=== PATIENT | male | born 1970 | race Caucasian/White ===

== ENCOUNTER 2017-01-01 09:13 | Emergency (ER) | payer BC ==
[~2017-01-01] VITALS: Wt 80.0 kg
[~2017-01-01 09:13] MED LIST: LISI10TA2 PO; LISI20TA11 PO
[2017-01-01] MEDS ORDERED: OXYMETAZOLINE 0.05% 15 ML NAS SPRAY NASAL STA (10:28)
[2017-01-01] MEDS ORDERED: PETR18JE2 TP (10:45)
--- NOTE | 2017-01-01 10:53 | ERD ---
ER Documentation Chief Complaint Date/Time DATE: 01/01/17 TIME: 10:49 Chief Complaint NOSE BLEED INTERMITTENT FOR 10 DAYS. NO TRAUMA OR HEADACHE HPI This is a 46-year-old male with a history of hypertension presenting to the emergency department complaining of a nosebleed that comes and goes for the past 10 days. Patient states that the nosebleed will happen in his right nare and last for about 30 minutes. Patient denies any active bleeding at this moment. Patient denies headache, head or facial trauma. Patient denies any dizziness. Patient has not tried any medications. He denies picking his nose. He denies any drug use. ROS All systems reviewed and are negative except as per history of present illness. Medications Home Meds Active Scripts Petrolatum,White (VASELINE) 18 Ml Jelly.ml., 1 APPLIC TP BID, #1 Prov:EDMUNDO TRINIDAD PA-C 01/01/17 Lisinopril* (Lisinopril*) 20 Mg Tablet, 20 MG PO DAILY, #20 TAB Prov:BILL QUINTEROS 05/15/15 Reported Medications Lisinopril* (Lisinopril*) 10 Mg Tablet, 10 MG PO DAILY, TAB 11/12/14 Allergies Allergies: Coded Allergies: No Known Allergy (Unverified , 05/15/15) PMhx/Soc Medical and Surgical Hx: pt denies Surgical Hx History of Surgery: No Anesthesia Reaction: No Hx Neurological Disorder: No Hx Respiratory Disorders: No Hx Cardiac Disorders: No Hx Psychiatric Problems: No Hx Miscellaneous Medical Probl: Yes (HTN, GOUT) Hx Alcohol Use: No Hx Substance Use: No Hx Tobacco Use: Yes Smoking Status: Current every day smoker Physical Exam Vitals Vital Signs Date Time Temp Pulse Resp B/P Pulse Ox O2 Delivery O2 Flow Rate FiO2 01/01/17 09:15 98.8 60 20 136/84 97 Physical Exam GENERAL: well-developed/well-nourished, in no apparent distress, non-toxic appearing HENT: NC/AT, bilateral tympanic membrane is normal with good cone of light, left nares patent and the right nare has evidence of dried blood,, oropharynx clear without exudates EYES: Conjunctiva normal, PERRLA, EOMI, no nystagmus noted NECK: Supple, no lymphadenopathy PULM: CTA bilaterally, no rales, rhonchi, or wheezing heard CV: Normal S1S2, RRR, good capillary refill GI: Soft, non-distended, normal bowel sounds, non-tender BACK: No midline tenderness, no masses, No CVAT EXT: No clubbing, cyanosis, or edema NEURO: Alert and orientated to person, place, and time. CN II-IIX intact. Gait and coordination were normal. Hand tube operator strength were equal and within normal limits SKIN: Intact, normal turgor PSYCH: Normal mood and mentation, patient denied SI Results 24 hrs Current Medications Medications (Trade) Dose Ordered Sig/Abeba Route PRN Reason Start Time Stop Time Status Last Admin Dose Admin Oxymetazoline HCl (Afrin [place]) 2 spray ONCE STAT NASAL 01/01/17 10:28 01/01/17 10:30 DC Procedures/MDM This is a 46-year-old male with history of hypertension presenting to the emergency room complaining of epistaxis intermittent for the past 10 days which is likely due to an anterior nosebleed. Patient did not have any evidence of any head trauma or active bleeding at this time. I doubt posterior epistaxis. In the ED lab work was drawn. CBC did not show any evidence of significant leukocytosis or anemia. Coagulation factors were within normal limits. In the ED oxymetazoline was used in the right nare, I discussed the patient to use this for about 2 days and I have given him the risks of rebound congestion. I discussed to use Vaseline in the right nare to keep the nostril moist. I discussed to follow-up with an ENT specialist within the next week. I discussed return to the ER for any worsening signs or symptoms. Patient understands and agrees with this plan. He s is hemodynamic stable and neurovascular intact for discharge. Departure Diagnosis: Primary Impression: Epistaxis Condition: Stable Patient Instructions: Epistaxis (Adult) Referrals: DMITRY NOLEN MD (PCP) ROWENA HUITRON MD Additional Instructions: No utilice el aerosol ms de 2-3 [place]eg[place]. Se empeorar la congestin despus de usarlo clarice 3 [place] Specialist:Usted tiene kimi condicin mdica que requiere que cliff a un especialista dentro de los prximos 1-2 bocanegra.POR FAVOR,CON [place] SEGUIMIENTO DE PRIMARIA PHSICIAN refferal. SI USTED NO TIENE UN MDICO GENERAL Y / O USTED NO PUEDE PAGAR jacinto a un mdico,los siguientes valle RECURSOS sido suministrado a usted. ES Y[place]OUGH RESPONSABILIDAD PARA SER VISTOS POR EL ESPECIALISTA: Chance toda la medicina anabelle y jean-claude se le indic. Regrese a estas instalaciones si no se mejora jean-claude esperbamos o jean-claude le dijimos. EDMUNDO TRINIDAD PA-C Jan 01, 2017 10:52
[2017-01-01 11:02] LABS: ADD SCAN DIFF NO
[2017-01-01 11:06] LABS: BASOPHILS % 0.7 % (0.0-2.0); EOSINOPHILS # 0.2 10^3/ul (0.0-0.5); EOSINOPHILS % 3.7 % (0.0-7.0); HEMATOCRIT 40.8 % (42.0-52.0); HEMOGLOBIN 14.1 g/dl (14.0-18.0); LYMPHOCYTES % 34.1 % (15.0-51.0); MEAN CORPUSCULAR HEMOGLOBIN 34.4 pg (29.0-33.0); MEAN CORPUSCULAR HGB CONC 34.6 g/dl (32.0-37.0); MEAN CORPUSCULAR VOLUME 99.5 fl (82.0-101.0); MEAN PLATELET VOLUME 10.7 fl (7.4-10.4); MONOCYTE # 0.5 10^3/ul (0.3-0.9); MONOCYTES % 8.1 % (0.0-11.0); NEUTROPHIL # 3.1 10^3/ul (1.6-7.5); NEUTROPHILS % 53.2 % (39.0-77.0); PLATELET COUNT 154 10^3/UL (140-415); RED CELL DISTRIBUTION WIDTH 12.9 % (11.5-14.5); WHITE BLOOD COUNT 5.9 10^3/ul (4.8-10.8)
[2017-01-01 11:20] LABS: INR 1.01; PROTIME 13.3 Sec (12.2-14.2)
[2017-01-01 11:21] LABS: PARTIAL THROMBOPLASTIN TIME 30.7 Sec (25.0-35.0)
== END 2017-01-01 11:36 | disposition home or self-care (01) ==
LOC: FTE 09:13
DX: R04.0 Epistaxis (principal); I10 Essential (primary) hypertension; F17.210 Nicotine dependence, cigarettes, uncomplicated
CPT/HCPCS: 85025; 85610; 85730; 99283; Z7610

== ENCOUNTER 2017-10-28 14:31 | Emergency (ER) | END 2017-10-28 17:16 | disposition home or self-care (01) ==